=== PATIENT | female | born 1955 | race Two or more races ===

== ENCOUNTER 2022-03-05 15:44 | Inpatient (IN) | payer BC, OTHER ==
[~2022-03-05] VITALS: Ht 170.2 cm; Wt 87.7 kg
[2022-03-05 19:02] LABS: Basophils # (auto) 0.1 10 ^3/uL (0-0.2); Eosinophils # (auto) 0.1 10 ^3/uL (0-0.8); Eosinophils % (auto) 0.7 % (0.0-7.0); Mean Corpuscular Hemoglobin 26.8 pg (28.0-32.0); Mean Corpuscular Volume 81.1 fL (80.0-100.0)
[2022-03-05 19:03] LABS: Basophils % (auto) 0.5 % (0.0-2.0); Hematocrit 44.6 % (36.0-46.0); Hemoglobin 14.7 g/dL (12.2-16.2); Lymphocytes # (auto) 2.1 10 ^3/uL (0.4-5.4); Lymphocytes % (auto) 15.5 % (10.0-50.0); Monocytes # (auto) 0.8 10 ^3/uL (0-1.3); Monocytes % (auto) 6.3 % (0.0-12.0); Neutrophils # (auto) 10.3 10 ^3/uL (1.6-8.6); Nucleated Red Blood Cells % 0.1 %; White Blood Cell 13.4 10^3/uL (4.4-10.8)
[2022-03-05 19:07] LABS: Albumin 3.4 g/dL (3.4-5.0); Calcium 9.3 mg/dL (8.5-10.1); Potassium 4.2 mmol/L (3.5-5.1)
[2022-03-05 19:09] LABS: BUN/Creatinine Ratio 24.3
[2022-03-05 19:12] LABS: Bilirubin, Total 0.5 mg/dL (0.2-1.0); Total Protein 7.4 g/dL (6.4-8.2)
[2022-03-05] MEDS ORDERED: ACETAMINOPHEN 325 MG TAB PO PRN (21:30)
[2022-03-05] MEDS ORDERED: HEPARIN SODIUM (PORCINE) 5000 UNITS/ML 1ML VIAL IV ONE (21:30)
[2022-03-05] MEDS ORDERED: DOCUSATE SOD 100 MG CAP PO PRN (21:30)
[2022-03-05] MEDS ORDERED: NITROGLYCERIN 0.4 MG SL TAB SL PRN (21:30)
[2022-03-05] MEDS: HYDROcodone-ACET 5/325MG TAB PO PRN (21:50)
[2022-03-05] MEDS: SOD CHL 0.45% 1,000 ML IV SCH ×2 (21:51→23:00)
[2022-03-05 23:32] VITALS: BP 147/73
[2022-03-06] MEDS ORDERED: LISI20TA28 PO (01:16)
[2022-03-06] MEDS ORDERED: INSU1INJ13 SC (01:16)
[2022-03-06] MEDS ORDERED: DAPA1TAB4 PO (01:16)
[2022-03-06] MEDS ORDERED: ROSU1TAB13 PO (01:16)
[2022-03-06 01:22] VITALS: BP 147/73
[2022-03-06 05:00] VITALS: BP 119/67
[2022-03-06] MEDS: HYDROcodone-ACET 5/325MG TAB PO PRN ×3 (08:37→21:16)
[2022-03-06 09:00] VITALS: BP 108/55
[2022-03-06] MEDS: CEPHALEXIN 250 MG CAP PO SCH ×2 (12:25→18:06)
[2022-03-06] MEDS ORDERED: CEPH500C PO (12:32)
[2022-03-06] MEDS ORDERED: DOXY100C2 PO (12:32)
[2022-03-06 13:00] VITALS: BP 117/64
[2022-03-06] MEDS ORDERED: DEXTROSE (50%) 50ML SYRG IV PRN (16:45)
[2022-03-06 17:00] VITALS: BP 138/70
[2022-03-06] MEDS: ACCU-CHEK COMFORT CURVE STRIP VI SCH ×2 (18:03→21:22)
[2022-03-06] MEDS: InsuLIN REG 1unit/0.01ml Soln (100units/ml) SC SCH ×2 (18:10→21:29)
[2022-03-06] MEDS: DOXYCYCLINE 100 MG TAB/CAP PO SCH (21:21)
[2022-03-06 21:30] VITALS: BP 134/76
[2022-03-06] MEDS ORDERED: ATORVASTATIN 20 MG TAB PO SCH (22:00)
[2022-03-07] MEDS: CEPHALEXIN 250 MG CAP PO SCH ×3 (00:12→12:00)
[2022-03-07] MEDS: HYDROcodone-ACET 5/325MG TAB PO PRN ×2 (02:48→13:39)
[2022-03-07 04:40] VITALS: BP 115/72
[2022-03-07] MEDS: ACCU-CHEK COMFORT CURVE STRIP VI SCH ×2 (06:23→11:30)
[2022-03-07] MEDS: InsuLIN REG 1unit/0.01ml Soln (100units/ml) SC SCH ×2 (06:24→11:30)
[2022-03-07 09:00] VITALS: BP 134/60
[2022-03-07] MEDS ORDERED: HYDR-4902 PO (09:21)
[2022-03-07] MEDS ORDERED: DAPAGLIFLOZIN 5 MG TAB PO SCH (10:00)
[2022-03-07] MEDS ORDERED: LISINOPRIL 20 MG TAB PO SCH (10:00)
[2022-03-07] MEDS: SOD CHL 0.45% 1,000 ML IV SCH (10:06)
[2022-03-07] MEDS: DOXYCYCLINE 100 MG TAB/CAP PO SCH (10:06)
[2022-03-07 13:44] VITALS: BP 116/63
== END 2022-03-07 14:21 | disposition home or self-care (01) | DRG 536 ==
LOC: EDBD 15:44 → ER 15:44 → OVERFLOW 21:17 → WEST WING 22:50
PROVIDERS: ADMIT Internal Medicine; ATTEND Internal Medicine
DX: S72.114A Nondisplaced fracture of greater trochanter of right femur, initial encounter for closed fracture (principal); E11.40 Type 2 diabetes mellitus with diabetic neuropathy, unspecified; E11.621 Type 2 diabetes mellitus with foot ulcer; E78.00 Pure hypercholesterolemia, unspecified; I10 Essential (primary) hypertension; L97.519 Non-pressure chronic ulcer of other part of right foot with unspecified severity; W01.0XXA Fall on same level from slipping, tripping and stumbling without subsequent striking against object, initial encounter; R53.81 Other malaise; M17.11 Unilateral primary osteoarthritis, right knee; Z20.822 Contact with and (suspected) exposure to COVID-19; Z82.49 Family history of ischemic heart disease and other diseases of the circulatory system; Z83.3 Family history of diabetes mellitus; Y93.89 Activity, other specified; Y92.89 Other specified places as the place of occurrence of the external cause; Y99.8 Other external cause status
CPT/HCPCS: 36415; 71045; 73502; 73560; 74176; 80053; 82962; 83036; 84484; 85025; 93005; 97163; G0378; J1815